=== PATIENT | female | born 1940 | race Two or more races ===

== ENCOUNTER 2025-01-05 11:48 | Outpatient (CLI) | payer OTHER | END 2025-01-05 11:55 | disposition home or self-care (01) | LOC: RAD 11:48 | PROVIDERS: ATTEND Orthopaedic Surgery | DX: M25.562 Pain in left knee (principal) ==

== ENCOUNTER 2025-01-17 07:44 | Outpatient (CLI) | payer OTHER ==
[2025-01-17 08:52] LABS: HEMATOCRIT 42.9 % (36.0-45.00); HEMOGLOBIN 14.9 g/dL (12.0-15.00); MEAN CELL VOLUME 90.9 fL (80.00-100.00); MEAN CORPUSCULAR HEMOGLOBIN 31.5 pg (27.00-32.0); MEAN CORPUSCULAR HGB CONC 34.6 g/dl (32.0-36.0); PLATELET COUNT 239 K/uL (150-450); RED BLOOD COUNT 4.73 M/uL (4.00-6.00); RED CELL DISTRIBUTION WIDTH 13.6 % (11.5-14.5)
[2025-01-17 09:14] LABS: INR 1.05; PROTHROMBIN TIME 11.4 SECONDS (9.0-11.5)
[2025-01-17 09:27] LABS: ALBUMIN 4.3 gm/dL (3.4-5.0); BILIRUBIN TOTAL 0.89 mg/dL (0.3-1.2); CALCIUM 9.7 mg/dL (8.5-10.1); CREATININE SERUM 0.62 mg/dL (0.55-1.02); GFR 92.15; GLOBULINA 2.7 G/DL (2.4-3.5); POTASSIUM 4.51 mEq/L (3.5-5.1)
[2025-01-17 09:33] LABS: COL EPI 92 SECONDS (82-175)
[2025-01-17 09:38] LABS: URINE APPEARANCE Clear; URINE BILIRRUBIN Negative (NEGATIVE); URINE BLOOD Negative; URINE COLOR Yellow; URINE GLUCOSE Negative (NEGATIVE); URINE KETONE 15 (NEGATIVE); URINE LEUKOCYTE Negative; URINE NITRATE Negative; URINE PROTEIN Negative (NEGATIVE); URINE UROBILINOGEN 0.2 E.U./dl
[2025-01-17 09:40] LABS: URINE BACTERIA 118.6 uL (0.0-1933); URINE EPITHELIAL CELLS 4.5 uL (0.0-38.8); URINE RBC 59.6 uL (0.0-20.8); URINE WBC 2.8 uL (0.0-23.2)
[2025-01-17 10:04] LABS: URINE CAST 0.29 uL (0.0-1.40); URINE CRYSTALS FEW /HPF; URINE MUCUS MODERATE
== END 2025-01-17 07:54 | disposition home or self-care (01) ==
LOC: LAB 07:44
PROVIDERS: ATTEND Orthopaedic Surgery
DX: D64.9 Anemia, unspecified (principal); E88.89 Other specified metabolic disorders; D68.8 Other specified coagulation defects; N39.0 Urinary tract infection, site not specified; Z22.322 Carrier or suspected carrier of Methicillin resistant Staphylococcus aureus; E11.9 Type 2 diabetes mellitus without complications; I10 Essential (primary) hypertension; Z76.89 Persons encountering health services in other specified circumstances

== ENCOUNTER 2025-01-17 09:31 | Outpatient (CLI) | payer OTHER | END 2025-01-17 09:36 | disposition home or self-care (01) | LOC: RAD 09:31 | PROVIDERS: ATTEND Orthopaedic Surgery | DX: M17.0 Bilateral primary osteoarthritis of knee (principal) ==

== ENCOUNTER 2025-02-04 07:13 | Outpatient (CLI) | payer OTHER ==
[2025-02-09] MEDS ORDERED: COZAAR25 MG PO (13:11)
[2025-02-09] MEDS ORDERED: VITAMIN D (13:11)
== END 2025-02-04 07:14 | disposition home or self-care (01) ==
LOC: NUCLEAR 07:13
PROVIDERS: ATTEND Internal Medicine
DX: I20.9 Angina pectoris, unspecified (principal)
CPT/HCPCS: 78452; 93017; A9500

== ENCOUNTER 2025-02-04 11:51 | Outpatient (CLI) | payer OTHER | END 2025-02-04 11:53 | disposition home or self-care (01) | LOC: LAB 11:51 | PROVIDERS: ATTEND Orthopaedic Surgery | DX: Z22.322 Carrier or suspected carrier of Methicillin resistant Staphylococcus aureus (principal) ==

== ENCOUNTER 2025-02-09 13:15 | Inpatient (IN) | payer OTHER ==
[~2025-02-09] VITALS: Ht 152.4 cm; Wt 59.0 kg
[2025-02-09 13:06] VITALS: BP 150/90
[~2025-02-09 13:15] MED LIST: COZAAR25 MG PO; VITAMIN D
[2025-02-14] MEDS ORDERED: KETOROLAC TROMETHAMINE 60 MG VIAL IM ONE (06:46)
[2025-02-14] MEDS ORDERED: BUPIVACAINE HCL/MPF 0.5% 30ML VIAL ONE ×2 (06:47→10:49)
[2025-02-14] MEDS ORDERED: VANCOMYCIN HCL 1,000 MG VIAL ONE (06:47)
[2025-02-14] MEDS ORDERED: EPINEPHRINE HCL/PF 1 MG/ML AMPUL ONE (06:47)
[2025-02-14] MEDS ORDERED: CEFAZOLIN SODIUM 1,000 MG VIAL ONE ×2 (06:48→16:21)
[2025-02-14] MEDS ORDERED: TRANEXAMIC ACID 100MG/1ML (1000MG) AMPUL IV ONE (06:56)
[2025-02-14] MEDS ORDERED: VITAMIN D350 MC4 PO (08:43)
[2025-02-14] MEDS ORDERED: MORPHINE SULFATE 4 MG/ML CARTRIDGE IV ONE (10:15)
[2025-02-14] MEDS ORDERED: PANTOPRAZOLE SODIUM 40 MG TABLET.DR PO SCH (10:37)
[2025-02-14] MEDS ORDERED: ONDANSETRON 4 MG TAB.RAPDIS PO PRN (10:45)
[2025-02-14] MEDS ORDERED: TRAMADOL HCL 50 MG TABLET PO PRN (10:45)
[2025-02-14] MEDS ORDERED: SODIUM CHLORIDE 0.45 % 1,000 ML IV SCH (10:45)
[2025-02-14] MEDS ORDERED: ONDANSETRON HCL 2 MG/ML VIAL IV PRN (10:45)
[2025-02-14] MEDS ORDERED: PROMETHAZINE HCL 50 MG/ML AMPUL IM PRN (10:45)
[2025-02-14] MEDS ORDERED: MEPERIDINE HCL/PF 50 MG/ML VIAL IM PRN (10:45)
[2025-02-14] MEDS ORDERED: KETOROLAC TROMETHAMINE 10 MG TABLET PO SCH (13:00)
[2025-02-14] MEDS ORDERED: ACETAMINOPHEN 325 MG TABLET PO SCH (13:00)
[2025-02-14] MEDS ORDERED: MORPHINE SULFATE 2 MG/ML CARTRIDGE IV ONE (13:41)
[2025-02-14] MEDS ORDERED: ENALAPRILAT DIHYDRATE 1.25 MG/ML VIAL IV PRN (15:00)
[2025-02-14] MEDS ORDERED: ACETAMINOPHEN 325 MG TABLET PO ONE (16:21)
[2025-02-14] MEDS ORDERED: CELECOXIB 200 MG CAPSULE PO ONE (16:21)
[2025-02-14] MEDS ORDERED: CEFAZOLIN SODIUM 1,000 MG VIAL IV SCH (17:00)
[2025-02-14] MEDS ORDERED: CELECOXIB 200 MG CAPSULE PO SCH (17:00)
[2025-02-15 00:30] VITALS: BP 121/72; O2SAT 98
[2025-02-15 08:57] LABS: HEMOGLOBIN 12.9 g/dL (12.0-15.00); MEAN CELL VOLUME 92.3 fL (80.00-100.00); MEAN CORPUSCULAR HEMOGLOBIN 31.3 pg (27.00-32.0); MEAN CORPUSCULAR HGB CONC 33.9 g/dl (32.0-36.0); PLATELET COUNT 242 K/uL (150-450); RED BLOOD COUNT 4.11 M/uL (4.00-6.00); RED CELL DISTRIBUTION WIDTH 13.1 % (11.5-14.5)
[2025-02-15] MEDS ORDERED: LOSARTAN POTASSIUM 25 MG TABLET PO SCH (09:00)
[2025-02-15] MEDS ORDERED: RIVAROXABAN 10 MG TAB PO SCH (09:00)
[2025-02-15 10:56] VITALS: BP 162/79; O2SAT 98
[2025-02-15 16:00] VITALS: BP 147/90; O2SAT 98
[2025-02-16] VITALS: BP 126/76; O2SAT 99
[2025-02-16 07:32] LABS: HEMOGLOBIN 11.2 g/dL (12.0-15.00); MEAN CELL VOLUME 91.8 fL (80.00-100.00); MEAN CORPUSCULAR HEMOGLOBIN 31.2 pg (27.00-32.0); PLATELET COUNT 218 K/uL (150-450); RED CELL DISTRIBUTION WIDTH 12.8 % (11.5-14.5)
[2025-02-16] MEDS ORDERED: SENNA/DOCUSATE SODIUM 1 TAB TABLET PO SCH (09:00)
[2025-02-16 10:40] VITALS: BP 130/58; O2SAT 99
[2025-02-16 10:48] LABS: ALBUMIN 3.1 gm/dL (3.4-5.0); BILIRUBIN TOTAL 0.9 mg/dL (0.3-1.2); CALCIUM 8.9 mg/dL (8.5-10.1); CREATININE SERUM 0.52 mg/dL (0.55-1.02); GFR 112.89; GLOBULINA 2.5 G/DL (2.4-3.5); POTASSIUM 4.24 mEq/L (3.5-5.1); TOTAL PROTEIN 5.6 gm/dL (6.4-8.2)
[2025-02-16 17:32] VITALS: BP 105/72; O2SAT 97
== END 2025-02-16 18:16 | DRG 470 ==
LOC: O/R 02-14 05:15 → SURH 02-14 07:00
PROVIDERS: ADMIT Orthopaedic Surgery; ATTEND Orthopaedic Surgery
PROC: 0QUD0JZ Supplement Right Patella with Synthetic Substitute, Open Approach (ICD-10-PCS; 2025-02-14)
PROC: 0SRC0JZ Replacement of Right Knee Joint with Synthetic Substitute, Open Approach (ICD-10-PCS; principal; 2025-02-14 07:00)
DX: M17.11 Unilateral primary osteoarthritis, right knee (principal); Z96.651 Presence of right artificial knee joint